=== PATIENT | male | born 1950 ===

== ENCOUNTER 2020-11-12 15:24 | Inpatient (IN) | payer MEDICARE, OTHER ==
[~2020-11-12 15:24] MED LIST: Iopamidol-370 76% 500 ML 1 ML ONE
[2020-11-12 15:55] LABS: #Eosinphils 0.1 thou/uL (0.0-0.7); #Lymphocytes 2.7 thou/uL (1.20-3.40); #Monocytes 0.6 thou/uL (0.11-0.59); #Neutrophils 4.4 thou/uL (1.40-6.50); %Basophils 0.3 % (0.0-1.0); %Lymphocytes 34.9 % (21.0-51.0); %Monocytes 7.5 % (0.0-10.0); %Neutrophils 56.2 % (42.0-75.0); Hemoglobin 16.3 g/dL (14.0-18.0); Mean Corpuscular HGB CONC 32.9 g/dL (32.0-36.0); Mean Corpuscular Hemoglobin 35.3 pg (27.0-31.0); Mean Platelet Volume 10.5 fL (7.4-10.4); Platelet Count 131 thou/uL (130-400); RBC Distribution Width 12.8 % (11.5-14.5); Red Blood Cell (RBC) Count 4.61 mill/uL (4.70-6.10); White Blood Cell (WBC) Count 7.8 thou/uL (4.8-10.8)
[2020-11-12 16:10] LABS: Large Platelets SLIGHT; MDiff Complete? YES; Macrocytosis SLIGHT = 6-15 cells (100X) (0-5/hpf); Platelet Morphology Comment Appears Adequate
[2020-11-12 16:12] LABS: ALT (SGPT) 11 U/L (8-55); AST (SGOT) 19 U/L (5-34); Albumin 4.2 g/dL (3.4-4.8); Alkaline Phosphatase 81 U/L (40-110); Anion Gap 15 mmol/L (10-20); BUN (Urea Nitrogen) 16 mg/dL (8.4-25.7); Bilirubin, Total 1.8 mg/dL (0.2-1.2); Calc. Creatinine Clearance 0 mL/min (70-130); Calcium 9.3 mg/dL (7.8-10.44); Carbon Dioxide 23 mmol/L (23-31); Chloride 105 mmol/L (98-107); Globulin 3.4 g/dL (2.4-3.5); Glucose 106 mg/dL (83-110); Potassium 3.7 mmol/L (3.5-5.1); Protein, Total 7.6 g/dL (5.8-8.1); Sodium 139 mmol/L (136-145)
[2020-11-12 16:33] LABS: CKMB 2.5 ng/mL (0-6.6)
[2020-11-12] MEDS ORDERED: Nitroglycerin 2% Ointment 1 INCH/1 GM Packet ONE (17:13)
[2020-11-12] MEDS ORDERED: Aspirin Chewable 81 MG TAB ONE (17:13)
[2020-11-12 17:16] LABS: Bacteria/HPF None Seen HPF (None Seen); Bilirubin Negative (Negative); Blood, Urine Trace (Negative); Clarity Clear (Clear); Glucose, Urine (Dipstick) Normal (Negative); Ketone, Urine Negative (Negative); Leukocyte Negative Leu/uL (Negative); Nitrite Negative (Negative); Protein, Urine (Dipstick) 200 mg/dL (Neg-Trace); RBC/HPF 0-3 HPF (0-3); Specific Gravity, Urine 1.021 (1.002-1.036); Squamous Epithelial None Seen HPF (0-3); Urobilinogen 3 mg/dL (Less than 2); WBC/HPF 0-3 HPF (0-3)
[2020-11-12] MEDS ORDERED: Ondansetron ODT 4 MG TAB SL PRN (18:45)
[2020-11-12] MEDS ORDERED: Nitroglycerin 0.4 MG TAB (25 Tab Bottle) SL PRN (18:45)
[2020-11-12] MEDS ORDERED: Ondansetron PF 4 MG/2 ML Vial IVP PRN (18:45)
[2020-11-12] MEDS ORDERED: Acetaminophen 325 MG TAB PO PRN ×2 (18:45)
[2020-11-12] MEDS ORDERED: HYDROcodone/Acetaminophen 5/325 mg Tablet PO PRN (18:45)
[2020-11-12 19:31] LABS: Troponin I 0.042 ng/mL (< 0.028)
[2020-11-12 20:02] VITALS: BMI 23.4
[2020-11-12] MEDS ORDERED: hydrALAZINE 20 MG/ML VIAL SLOW IVP PRN (20:09)
[2020-11-12] MEDS ORDERED: Furosemide 40 MG/4 ML VIAL SLOW IVP SCH (21:30)
[2020-11-12] MEDS: Heparin 5,000 UNITS/ML VIAL SC SCH (21:42)
[2020-11-12 22:00] LABS: Actual Bicarbonate (HCO3a) 20.9 mEq/L (22-28); Base Excess (BEa) -1.3 mEq/L (-2.0 to +3.0); CO2 Tension 29.1 mmHg (35.0-45.0); Calcium, Ionized (arterial) 1.15 mmol/L (1.12-1.30); Carboxyhemoglobin (COHb) 0.5 gm% (0.0-3.0); Hemoglobin (Hb) 15.3 g/dL (14.0-18.0); O2 Tension (PaO2), arterial 76.1 mmHg (> 70.0); Potassium - ABG Lab 3.68 mmol/L (3.70-5.30); pH, Arterial 7.47 (7.35-7.45)
[2020-11-12] MEDS ORDERED: Nitroglycerin 2% Ointment 1 INCH/1 GM Packet TOP SCH (22:00)
[2020-11-12 22:03] LABS: Puncture Site LRA
[2020-11-12 22:04] LABS: ALV-art Gradient 115.685 mmHg (0-20)
[2020-11-12 22:47] LABS: Troponin I 0.034 ng/mL (< 0.028)
[2020-11-13] MEDS: Metoprolol Tartrate 5 MG/5 ML VIAL IVP PRN (00:49)
[2020-11-13 01:01] LABS: SARS-CoV-2 PCR by NAA Not Detected (NotDetected)
[2020-11-13 05:12] LABS: #Eosinphils 0.1 thou/uL (0.0-0.7); #Lymphocytes 1.8 thou/uL (1.20-3.40); #Monocytes 0.5 thou/uL (0.11-0.59); #Neutrophils 4.4 thou/uL (1.40-6.50); %Basophils 0.6 % (0.0-1.0); %Eosinophils 0.8 % (0.0-10.0); %Lymphocytes 26.7 % (21.0-51.0); %Monocytes 7.8 % (0.0-10.0); Hemoglobin 15.6 g/dL (14.0-18.0); Mean Corpuscular Hemoglobin 33.9 pg (27.0-31.0); Mean Platelet Volume 10.8 fL (7.4-10.4); Platelet Count 114 thou/uL (130-400); Red Blood Cell (RBC) Count 4.61 mill/uL (4.70-6.10); White Blood Cell (WBC) Count 6.9 thou/uL (4.8-10.8)
[2020-11-13 05:36] LABS: Anion Gap 14 mmol/L (10-20); BUN (Urea Nitrogen) 14 mg/dL (8.4-25.7); Calc. Creatinine Clearance 81 mL/min (70-130); Calcium 9.3 mg/dL (7.8-10.44); Carbon Dioxide 22 mmol/L (23-31); Cardiac Risk 3.3 (Less than 4.5); Chloride 105 mmol/L (98-107); Cholesterol 122 mg/dl (< 200 Desired); Glucose 79 mg/dL (83-110); HDL Cholesterol 37 mg/dL (>60 Neg Risk); LDL Cholesterol, Calculated 75 mg/dL; Potassium 3.4 mmol/L (3.5-5.1); Sodium 138 mmol/L (136-145); Triglycerides 48 mg/dL (Less than 150)
[2020-11-13 05:53] LABS: T4 6.7 ug/dL (4.87-11.72); Thyroid Stimulating Hormone 1.959 uIU/mL (0.35-4.94)
[2020-11-13] MEDS: Furosemide 40 MG/4 ML VIAL SLOW IVP SCH ×2 (06:11→15:40)
[2020-11-13] MEDS: Heparin 5,000 UNITS/ML VIAL SC SCH (08:47)
[2020-11-13] MEDS: Aspirin Chewable 81 MG TAB PO SCH (08:47)
[2020-11-13] MEDS ORDERED: Regadenoson 0.4 MG/5 ML SYRINGE ONE (09:25)
[2020-11-13] MEDS ORDERED: Lisinopril 10 MG TAB PO SCH (10:00)
[2020-11-13] MEDS ORDERED: Enoxaparin Sodium 60 MG/0.6 ML SYRINGE SC SCH ×2 (10:00→10:03)
[2020-11-13] MEDS ORDERED: Metoprolol Tartrate 25 MG TAB PO SCH (10:00)
[2020-11-13] MEDS: Enoxaparin Sodium 60 MG/0.6 ML SYRINGE SC SCH (20:48)
[2020-11-13] MEDS: Metoprolol Tartrate 25 MG TAB PO SCH (20:49)
[2020-11-14] MEDS: Furosemide 40 MG/4 ML VIAL SLOW IVP SCH ×2 (06:30→13:35)
[2020-11-14] MEDS: Enoxaparin Sodium 60 MG/0.6 ML SYRINGE SC SCH ×2 (08:27→20:43)
[2020-11-14] MEDS: Aspirin Chewable 81 MG TAB PO SCH (08:28)
[2020-11-14] MEDS: Lisinopril 10 MG TAB PO SCH (08:28)
[2020-11-14] MEDS: Metoprolol Tartrate 25 MG TAB PO SCH ×2 (08:28→20:44)
[2020-11-14] MEDS: Metoprolol Tartrate 5 MG/5 ML VIAL IVP PRN (19:16)
[2020-11-15] MEDS: Furosemide 40 MG/4 ML VIAL SLOW IVP SCH (06:02)
[2020-11-15] MEDS: Lisinopril 10 MG TAB PO SCH (09:25)
[2020-11-15] MEDS: Metoprolol Tartrate 25 MG TAB PO SCH (09:25)
[2020-11-15] MEDS: Aspirin Chewable 81 MG TAB PO SCH (09:25)
[2020-11-15] MEDS: Enoxaparin Sodium 60 MG/0.6 ML SYRINGE SC SCH (09:25)
[2020-11-15 11:39] VITALS: TEMP 97
[2020-11-15 16:22] VITALS: BP 151/86
== END 2020-11-15 12:50 | disposition home or self-care (01) | DRG 307 ==
LOC: ERS 15:24 → 2NO 17:04
PROVIDERS: ADMIT Internal Medicine; ATTEND Internal Medicine
DX: I34.1 Nonrheumatic mitral (valve) prolapse (principal); I48.92 Unspecified atrial flutter; I47.1 Supraventricular tachycardia; I50.32 Chronic diastolic (congestive) heart failure; Z20.822 Contact with and (suspected) exposure to COVID-19; M32.9 Systemic lupus erythematosus, unspecified; E78.5 Hyperlipidemia, unspecified; Z96.641 Presence of right artificial hip joint; I11.0 Hypertensive heart disease with heart failure; K21.9 Gastro-esophageal reflux disease without esophagitis; M19.90 Unspecified osteoarthritis, unspecified site; I20.9 Angina pectoris, unspecified; Z86.718 Personal history of other venous thrombosis and embolism; Z79.899 Other long term (current) drug therapy
CPT/HCPCS: 36415; 36600; 51701; 71045; 71275; 78452; 80048; 80053; 80061; 81003; 81015; 82553; 82805; 83605; 83735; 83880; 84436; 84443; 84484; 85025; 87040; 87086; 93005; 93010; 93017; 93306; 94760; A9500; J1644; J1650; J1940; J2785; Q9967; U0003; U0005